=== PATIENT | female | born 1975 | race Caucasian/White ===

== ENCOUNTER → 2017-12-31 08:01 | Outpatient (CLI) | payer OTHER, SELFPAY ==
[2017-12-31 09:14] LABS: Cholesterol 180 mg/dL (140-199); HDL Cholesterol 80 mg/dL (40-60); LDL Cholesterol Calculated 72 mg/dL (<100); Triglycerides 141 mg/dL (35-150)
== END ==
PROVIDERS: PCP Internal Medicine; Visit Provider Internal Medicine
DX: Z00.00 Encounter for general adult medical examination without abnormal findings (principal); Z76.89 Persons encountering health services in other specified circumstances; I10 Essential (primary) hypertension
CPT/HCPCS: 36415; 80061

== ENCOUNTER → 2018-09-28 13:34 | Outpatient (CLI) | payer OTHER, SELFPAY ==
--- NOTE | 2018-09-28 | DI.RAD.S_ITS ---
PROCEDURE: XR HAND LT 2V INDICATIONS: ARTHRITIS TECHNIQUE: 2 views of the hand acquired. COMPARISON: None. FINDINGS: Bones: No fractures or dislocations. Carpal bones are normally aligned. No suspicious bony lesions. Soft tissues: No suspicious soft tissue calcifications. IMPRESSION: Normal for age, source of current hand pain symptoms is not seen. Dictated by: Taras Guillen M.D. on 09/28/2018 at 15:28 Approved by: Taras Guillen M.D. on 09/28/2018 at 15:29
--- NOTE | 2018-09-28 | DI.RAD.S_ITS ---
PROCEDURE: XR HAND RT 2V INDICATIONS: ARTHRITIS TECHNIQUE: 2 views of the hand(s) acquired. COMPARISON: None. FINDINGS: Bones: No fractures or dislocations. Carpal bones are normally aligned. No suspicious bony lesions. Soft tissues: No suspicious soft tissue calcifications. IMPRESSION: Normal for age, source of current hand pain symptoms is not seen. Dictated by: Taras Guillen M.D. on 09/28/2018 at 15:24 Approved by: Taras Guillen M.D. on 09/28/2018 at 15:28
== END ==
PROVIDERS: Family Provider Internal Medicine; PCP Internal Medicine; Visit Provider Physician Assistant Medical
DX: M19.041 Primary osteoarthritis, right hand (principal); M19.042 Primary osteoarthritis, left hand
CPT/HCPCS: 73120

== ENCOUNTER → 2018-12-30 11:44 | Outpatient (CLI) | payer OTHER, SELFPAY ==
[2018-12-30 14:05] LABS: Thyroid Stimulating Hormone 1.91 uIU/mL (0.47-4.68)
== END ==
PROVIDERS: PCP Internal Medicine; Visit Provider Internal Medicine
DX: J01.90 Acute sinusitis, unspecified (principal)
CPT/HCPCS: 36415; 84443

== ENCOUNTER 2019-09-10 11:39 | Emergency (ER) | payer OTHER, MEDICAID, SELFPAY ==
[2019-09-10 11:40] VITALS: BP 153/91; PULSE 88; RESP 15; TEMP 36.7; O2SAT 100
--- NOTE | 2019-09-10 11:47 | ED_ITS ---
HPI - Chest Pain General Chief Complaint: Chest Pain Stated Complaint: Thinks Possible Heart Attack Time Seen by Provider: 09/10/19 11:41 Source: patient Mode of arrival: Ambulatory Limitations: no limitations History of Present Illness HPI narrative: Patient is a 44-year-old female who presents with a variety of co mplaints. She says she is not sure what happened she woke up this morning and then started sweating profusely and then got extremely cold. She then developed some slight nausea and sensitivity to light but denies any headache. She has no numbness tingling or weakness. She did have some shortness of breath but denies any cough she says that also has resolved. Pain that lasted roughly 2 minutes and is now currently chest pain-free. She has been under quite a lot of family stress lately she says nothing she can handle. Related Data Previous Rx's Medication Instructions Recorded atenolol 25 mg PO BID #180 tab 05/04/16 lisinopril [Prinivil] 20 mg PO QDAY #90 tab 05/04/16 Allergies Allergy/AdvReac Type Severity Reaction Status Date / Time penicillin G [PENICILLIN G] Allergy Severe HIVES Verified 09/10/19 11:48 amlodipine [AMLODIPINE] AdvReac Mild edema of Verified 09/10/19 11:48 feet and ankles Review of Systems Review of Systems ROS Unobtainable: All systems reviewed & are unremarkable except as noted in HPI and below Constitutional Constitutional: Reports body ache(s), Denies malaise, Denies night sweats and Denies poor appetite Eyes Eyes: Denies change in vision, Denies eye discharge, Denies irritation and Denies loss of vision ENT Ears, Nose, Mouth, and Throat: Denies change in voice, Denies neck pain and Denies sore throat Cardiovascular Cardiovascular: Reports chest pain (Now resolved), Denies irregular heart rhythm, Denies lightheadedness, Denies palpitations, Reports dyspnea (Now resolved), Denies dyspnea on exertion and Denies orthopnea Respiratory Respiratory: Denies cough, Reports dyspnea (Now resolved), Denies dyspnea on exertion and Denies wheezing Genitourinary Genitourinary: Denies hematuria, Denies flank pain, Denies urinary incontinence and Denies urinary urgency Musculoskeletal Musculoskeletal: Denies neck pain Integumentary/Breasts Skin/Breast: Denies pruritus, Denies erythema, Denies rash and Denies wounds Neurologic Neurologic: Denies loss of vision Endocrine Endocrine: Denies palpitations Allergic/Immunologic Allergic/Immunologic: Denies wheezing Patient History Medical History Anxiety (02/25/15) Essential hypertension (Chronic 04/06/13) Vitamin D deficiency (09/09/15) Family History Father Age: 76 Smoker Mother Lymphoma, unspecified lymphoma, unspecified lymphoma region Social History Smoking Status: Never smoker Smoking Status: Never smoker Exam Initial Vital Signs Initial Vital Signs: Vital Signs Temperature 98.1 F 09/10/19 11:40 Pulse Rate 88 09/10/19 11:40 Respiratory Rate 15 09/10/19 11:40 Blood Pressure 153/91 H 09/10/19 11:40 Pulse Oximetry 100 09/10/19 11:40 GENERAL: Well-appearing, well-nourished and in no acute distress. HEENT: Head atraumatic,EOMI, pupils reactive, face symmetric, moist mucous membranes CARDIOVASCULAR: Regular rate and rhythm without murmurs, rubs or gallops. RESPIRATORY: Breath sounds equal bilaterally, no wheezes rales or rhonchi. ABDOMEN: Soft, nontender. Normoactive bowel sounds all 4 quadrants. No guarding or rebound. EXTREMITIES: Normal range of motion, no clubbing or edema. Neurovascularly intact NEUROLOGICAL: Alert and oriented x4.Normal gait and speech. SKIN: Warm, dry, no laceration, no petechiae, no rashes or lesions. Scores HEART Score Heart Score history: Slightly Suspicious Heart Score EKG: Normal Heart Score Age: 45-64 years old Heart Score risk factors: No known risk factors Heart Score troponin: < or = to normal limit Heart Score Total: 1 NIH Stroke Scale Level of Conciousness: Alert, keenly responsive Ask month/age: Answers both questions correctly. Open/close eyes, close hand: Performs both tasks correctly Best gaze horizontal: Normal Visual day: No visual loss Facial palsy: Normal symetrical movement Left arm drift: No drift for full 10 sec Right arm drift: No drift for full 10 sec Left leg drift: No drift for full 10 sec Right leg drift: No drift for full 10 sec Limb ataxia: Absent Sensory on face/arms/legs: Normal, no sensory loss Best language: No aphasia, normal Dysarthria: Normal Extinction or inattention: No abnormality Total NIH Stroke scale score: 0 Course Orders Ordered: ED Orders 09/10/19 11:43 Complete Blood Count AUTO DIFF Stat Comprehensive Metabolic Panel Stat Influenza A & B (PCR) Stat Lipase Stat Troponin & CK Cardiac Panel Stat 09/10/19 11:54 XR chest 1V Stat EKG-12 Lead Stat Discontinued Medications Sodium Chloride (Normal Saline 0.9%) 1,000 mls @ 1,000 mls/hr IV CONT MALLORY Last Infusion: 09/10/19 13:16 Dose: 0 mls/hr Documented by: Admin: 09/10/19 12:04 Dose: 1,000 mls/hr Documented by: MORGAN Ondansetron HCl (Zofran) 4 mg IV NOW ONE Stop: 09/10/19 11:55 Last Admin: 09/10/19 12:04 Dose: 4 mg Documented by: MORGAN Vital Signs Vital signs: Vital Signs - 8 hr 09/10/19 11:40 09/10/19 12:30 09/10/19 13:00 Temperature 98.1 F Pulse Rate 88 76 72 Respiratory Rate 15 14 16 Blood Pressure 153/91 H Blood Pressure [Left Arm] 128/79 140/99 H Pulse Oximetry 100 100 100 09/10/19 13:34 Temperature Pulse Rate 66 Respiratory Rate 17 Blood Pressure Blood Pressure [Left Arm] 144/80 H Pulse Oximetry 96 MDM - Chest Pain Lab Data Attestation: I reviewed the patient's lab results. Result diagrams: 09/10/19 11:43 09/10/19 11:43 Labs: Lab Results 09/10/19 09/10/19 09/10/19 Range/Units 11:43 11:43 11:43 WBC 7.5 (4.5-11.0) X10^3/uL RBC 3.64 L (4.0-5.2) X10^6/uL Hgb 12.3 (12.0-16.0) g/dL Hct 35.8 L (36-46) % MCV 98.5 (80-100) fL MCH 33.7 (26-34) PG MCHC 34.2 (30-36) % RDW 15.3 H (11.6-14.8) % Plt Count 262 (150-400) X10^3/uL Neut % (Auto) 80.1 H (50-75) % Lymph % (Auto) 11.9 L (25-40) % Nicollet % (Auto) 6.8 (3-14) % Eos % (Auto) 0.6 L (2-4) % Baso % (Auto) 0.6 (0-2) % Neut # (Auto) 6000 (7485-9340) /uL Lymph # (Auto) 900 L (6321-2401) /uL Nicollet # (Auto) 500 (0-900) /uL Eos # (Auto) 0 (0-450) /uL Baso # (Auto) 0 (0-100) /uL Sodium 137 (137-145) mmol/L Potassium 4.0 (3.4-5.1) mmol/L Chloride 99 (98-107) mmol/L Carbon Dioxide 27 (22-32) mmol/L BUN 17 (7-17) mg/dL Creatinine 1.10 H (0.52-1.04) mg/dL Estimated GFR 53.5 L (>60) mL/min BUN/Creatinine Ratio 15.5 (6-22) Glucose 151 H (70-100) mg/dL Calcium 9.6 (8.4-10.2) mg/dL Total Bilirubin 0.6 (0.2-1.3) mg/dL AST 110 H (14-36) IU/L ALT 43 H (<35) IU/L Alkaline Phosphatase 80 (38-126) U/L Total Creatine Kinase 158 H (30-135) U/L CK-MB (CK-2) 0.72 (<2.37) ng/mL CK-MB (CK-2) Rel Index 0.5 L (1.5-5.0) % Troponin I < 0.012 (0.01-0.034) ng/mL Total Protein 8.2 (6.3-8.2) g/dL Albumin 4.8 (3.5-5.0) g/dL Globulin 3.4 (1.7-4.1) g/dL Albumin/Globulin Ratio 1.4 (1.0-2.8) Lipase 186 (23-300) U/L Influenza A (RT-PCR) Flu a negative (NEGATIVE) Influenza B (RT-PCR) Flu b negative (NEGATIVE) Imaging Data Chest x-ray: Radiologist's Impression: PROCEDURE: XR CHEST 1V INDICATIONS: sob TECHNIQUE: One view of the chest was acquired. COMPARISON: None. FINDINGS: Surgical changes and devices: None. Lungs and pleura: Lungs are clear. No pleural effusions or pneumothorax. Mediastinum: Mediastinal contours appear normal. Heart size is normal. Bones and chest wall: No suspicious bony lesions. Overlying soft tissues appear unremarkable. IMPRESSION: Negative chest. No acute cardiopulmonary process is evident. Dictated by: Lucien Pacheco M.D. on 09/10/2019 at 11:30 ECG Data Attestation: I personally reviewed and interpreted this ECG as follows: Prior ECG tracings: not available for review Interpretation: Normal sinus rhythm rate 72 p.r. interval 158 QRS [address] elevation depression or T-wave inversion MDM Narrative Medical decision making narrative: Patient presents with multiple vague complaints. She has no real significant chest pain or shortness of breath with exertion she woke up with some sweating slight headache which she did not want any medications for. His after IV fluids and Zofran she is overall feeling better. Her blood pressure is noted to be slightly elevated while in the emergency department however I do not think this is contributing to her symptoms. She does have a lot of stress I think a lot of this may be related to anxiety however she does not think so. Nonetheless I recommend outpatient follow-up. Discharge Plan Departure Patient Disposition: Home Clinical Impression: Atypical chest pain, Essential hypertension Discharge Date/Time: 09/10/19 13:45 Instructions: DI for Atypical Chest Pain, DI for Anxiety -- Adult Activity Restrictions/Additional Instructions: *You have been diagnosed with atypical chest pain *What to do: At this time blood work chest x-ray EKG are overall all reassuring. Unclear what caused her symptoms today possibly anxiety. Your blood pressure is noted to be slightly elevated recommend that you follow-up with your primary care physician you may require adjustment in her medication. However blood pressure is on the likely to have caused your symptoms today *Continue to take medications as directed *Follow up with your primary care provider in 2-3 days *Return to ER if you should have any new, worsening or concerning symptoms Prescriptions: No Action lisinopril [Prinivil] 20 MG tablet 20 mg PO QDAY Qty: 90 RF: 1 atenolol 25 MG tablet 25 mg PO BID Qty: 180 RF: 1 Referrals: Indigo Samson MD [Physician] -
--- NOTE | 2019-09-10 11:54 | DI.RAD.S_ITS ---
PROCEDURE: XR CHEST 1V INDICATIONS: sob TECHNIQUE: One view of the chest was acquired. COMPARISON: None. FINDINGS: Surgical changes and devices: None. Lungs and pleura: Lungs are clear. No pleural effusions or pneumothorax. Mediastinum: Mediastinal contours appear normal. Heart size is normal. Bones and chest wall: No suspicious bony lesions. Overlying soft tissues appear unremarkable. IMPRESSION: Negative chest. No acute cardiopulmonary process is evident. Dictated by: Lucien Pacheco M.D. on 09/10/2019 at 11:30 Approved by: Lucien Pacheco M.D. on 09/10/2019 at 11:36
--- NOTE | 2019-09-10 11:58 | PC.NURSE ---
states, has been under alot of stress due to family matters. woke up all sweaty,shortness of breath with chest pain, then chills. 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
[2019-09-10] MEDS: ONDANSETRON 4 MG/2 ML INJ IV (12:04)
[2019-09-10] MEDS: SODIUM CHLORIDE 0.9% 1,000 ML 1000 ML IV (12:04)
[2019-09-10 12:11] LABS: Add Manual Diff / Slide Review NO; Basophils Absolute Auto 0 /uL (0-100); Basophils Percent Auto 0.6 % (0-2); Eosinophils Absolute Auto 0 /uL (0-450); Eosinophils Percent Auto 0.6 % (2-4); Hematocrit 35.8 % (36-46); Hemoglobin 12.3 g/dL (12.0-16.0); Lymphocytes Absolute Auto 900 /uL (1100-4500); Lymphocytes Percent Auto 11.9 % (25-40); Mean Corpuscular HGB Conc 34.2 % (30-36); Mean Corpuscular Hemoglobin 33.7 PG (26-34); Mean Corpuscular Volume 98.5 fL (80-100); Monocytes Absolute Auto 500 /uL (0-900); Monocytes Percent Auto 6.8 % (3-14); Neutrophils Absolute Auto 6000 /uL (1500-7000); Neutrophils Percent Auto 80.1 % (50-75); Platelet Count 262 X10^3/uL (150-400); Red Blood Cell Count 3.64 X10^6/uL (4.0-5.2); Red Cell Distribution Width 15.3 % (11.6-14.8); White Blood Cell Count 7.5 X10^3/uL (4.5-11.0)
[2019-09-10 12:20] LABS: Alanine Aminotransferase 43 IU/L (<35); Albumin 4.8 g/dL (3.5-5.0); Albumin Globulin Ratio 1.4 (1.0-2.8); Alkaline Phosphatase 80 U/L (38-126); Aspartate Aminotransferase 110 IU/L (14-36); BUN Creatinine Ratio 15.5 (6-22); Bilirubin Total 0.6 mg/dL (0.2-1.3); Blood Urea Nitrogen 17 mg/dL (7-17); Calcium 9.6 mg/dL (8.4-10.2); Carbon Dioxide 27 mmol/L (22-32); Chloride 99 mmol/L (98-107); Creatine Kinase 158 U/L (30-135); Estimated Glomerular Filt Rate 53.5 mL/min (>60); Globulin 3.4 g/dL (1.7-4.1); Glucose 151 mg/dL (70-100); HEMOLYSIS < 15 (0-50); Lipase 186 U/L (23-300); Sodium 137 mmol/L (137-145); Total Protein 8.2 g/dL (6.3-8.2)
[2019-09-10 12:30] VITALS: BP 128/79; PULSE 76; RESP 14; O2SAT 100
[2019-09-10 12:31] LABS: Troponin I < 0.012 ng/mL (0.01-0.034)
[2019-09-10 12:35] LABS: CKMB % Relative Index 0.5 % (1.5-5.0); Creatine Kinase MB 0.72 ng/mL (<2.37)
[2019-09-10 12:42] LABS: Influenza A - CEPHEID Flu A NEGATIVE (NEGATIVE); Influenza B - CEPHEID Flu B NEGATIVE (NEGATIVE)
[2019-09-10 13:00] VITALS: BP 140/99; PULSE 72; RESP 16; O2SAT 100
[2019-09-10 13:34] VITALS: BP 144/80; PULSE 66; RESP 17; O2SAT 96
== END 2019-09-10 13:45 | disposition home or self-care (01) ==
PROVIDERS: Emergency Provider Emergency Medicine; PCP Student in an Organized Health Care Education/Training Program
DX: R07.89 Other chest pain (principal); I10 Essential (primary) hypertension; R06.02 Shortness of breath
CPT/HCPCS: 36415; 71045; 80053; 82550; 82553; 83690; 84484; 85025; 87502; 93005; 93010; 96361; 96374; 99284; 99285; J2405

== ENCOUNTER → 2020-06-30 13:06 | Outpatient (CLI) | payer OTHER, MEDICAID, SELFPAY | PROVIDERS: PCP Student in an Organized Health Care Education/Training Program; Visit Provider Physician Assistant | DX: R30.0 Dysuria (principal) | CPT/HCPCS: 87086 ==

== ENCOUNTER 2024-03-22 16:28 | Outpatient (RCR) | payer OTHER, SELFPAY ==
--- NOTE | 2024-03-22 17:29 | PT.OIE ---
Current Diagnoses Other chronic pain (03/22/24) Pain in right shoulder (03/22/24) Pain in left shoulder (03/22/24) Past Medical History (Last Reviewed 09/10/19 @ 12:55 by Tea Avendaño DO) Anxiety (02/25/15) Essential hypertension (04/06/13) Vitamin D deficiency (09/09/15) Visit Care Team Role Provider Type Bart Asher DO Primary Care Provider Non-Staff Specialty: Medical Address: [address] [place], [address] Email: Gilbert Samayoa PA-C Attending Provider Non-Staff Family Provider Referring Provider Specialty: Medical Address: [address] [place], [address] Email: Physical Therapy Initial Evaluation PT-OP-A Visit Information Start: 03/22/24 17:39 Freq: Status: Active Protocol: Document 03/22/24 16:45 DCW (Rec: 03/22/24 17:49 [facility] [id number]) Out-Patient Physical Therapy Visit Information Visit Information Visit Type Initial Evaluation Visit Start Time 16:45 Visit Stop Time 17:15 Visit Number 1 Number of PRECISION ASSEMBLY INSPECTOR Visits 0 Evaluation Information Evaluation Date 03/22/24 PT-OP-B Current Condition Start: 03/22/24 17:39 Freq: Status: Active Protocol: Document 03/22/24 16:45 DCW (Rec: 03/22/24 17:49 [facility] [id number]) Current Condition History of Current Condition Onset Date A couple years Current Complaints Bilateral shoulder pain History of Current Condition Pt is a 48 year old female presenting with a couple year history of bilateral shoulder pain. Pt reports the pain varies, comes and goes, and switches side to side. 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 Does not feel like there is anything she has discovered that makes it either worse or better. When her shoulders hurt more on worse days, she notes she chooses not to do things that might hurt, like play tennis, but she could if she really wanted to. Prior Treatments and Tests Bilateral shoulder X-ray: IMPRESSION: [id number] acromioclavicular osteoarthritis, greater on the right than on the left. per Bernard Lucio M.D. on 2023 PT-OP-C Subjective Start: 03/22/24 17:39 Freq: Status: Active Protocol: Document 03/22/24 16:45 DCW (Rec: 03/22/24 17:49 DCW [id number]) OP-PT Subjective Patient Comments Patient Comments There's no pain in my right this week. And today is a pretty mild pain day for my left. I'm sorry I'm not in more pain. Patient Questionnaires Quick Dash- Upper Extremity Quick Dash UE Score 22.73% Quick Dash UE Impairment 20 to 39% Impaired (Score 20- 39) PT-OP-F Manual Assessment Start: 03/22/24 17:39 Freq: Status: Active Protocol: Document 03/22/24 16:45 DCW (Rec: 03/23/24 16:15 DCW [id number]) Manual Assessments Joint Mobility Assessment Joint Mobility Assessment Bilateral shoulder blades protracted, inferior angle slightly rotated medially PT-OP-J Posture/Palpation/Skin Start: 03/22/24 17:39 Freq: Status: Active Protocol: Document 03/22/24 16:45 DCW (Rec: 03/23/24 16:15 DCW [id number]) Posture Evaluation Position Sitting Shoulder Posture (L) Rounded,(R) Rounded Scapula Posture (L) Protracted,(R) Protracted, (L) Rotated Down,(R) Rotated Down PT-OP-K Range of Motion Start: 03/22/24 17:39 Freq: Status: Active Protocol: Document 03/22/24 16:45 DCW (Rec: 03/23/24 16:15 DCW [id number]) Shoulder Goniometric Range of Motion Shoulder ROM Limitations Comments Shoulder ROM WNL bilaterally PT-OP-L Special Tests Start: 03/22/24 17:39 Freq: Status: Active Protocol: Document 03/22/24 16:45 DCW (Rec: 03/23/24 16:15 DCW [id number]) Special Tests Shoulder Special Tests Painful Arc Test Results Positive L Passive ER Rotator Cuff Test Results Negative Lift-Off Rotator Cuff Test Results Positive L Barraza Luis F Impingement Test Results Positive L Grind Labrum Test Results Negative Clunk Test Test Results Negative Belly Press Test Results Positive L Apprehension Test Test Results Negative PT-OP-Q Treatments Start: 03/22/24 17:39 Freq: Status: Active Protocol: Document 03/22/24 16:45 DCW (Rec: 03/22/24 17:51 DCW [id number]) Therapeutic Exercises Supine Exercises Serratus Punch Supine Exercise Name Serratus Punch Side bilateral Standing Exercises Shoulder Extension Standing Exercise Name Shoulder Extension Side bilateral Resistance Lv 3 Rows Standing Exercise Name Rows Side bilateral Resistance Lv 3 Pec Stretch Standing Exercise Name Pec Stretch in corner Side bilateral PT-OP-T Assessment and Plan Start: 03/22/24 17:39 Freq: Status: Active Protocol: Document 03/22/24 16:45 DCW (Rec: 03/23/24 16:21 DCW [id number]) Physical Therapy Assessment Rehab Potential Rehabilitation Potential Good Evaluation Complexity Number of Personal Factors/Comorbidities 1-2 Number of Body Systems Impaired 1-2 Clinical Presentation at Evaluation Stable Impairments Impairments Pain,Posture Assessment Summary Assessment Pt presented with mildly positive symptomology suggestive of potential supraspinatus impingement. Bilateral scapula mildly protracted and downwardly rotated, may be creating decreased subacromial space, resulting in impingement and increased inflammation. Overall, pain less at this point than it had been earlier . Pt provided with HEP, including pec stretch, serratus punch, rows, and shoulder extension. Following assessment, pt phoned clinic, requesting cancellation of remaining appointments and discharge. Pt will be discharged from skilled therapy at this time. Physical Therapy Plan Frequency and Duration Frequency of Treatment 1x/Week Plan of Care Start Date 03/22/24 Plan of Care End Date 03/23/24 Discharge Physical Therapy Discharge Reasons Patient Request
--- NOTE | 2024-03-22 17:30 | PT.OPPOC ---
Physical, Occupational & Speech Therapy At [facility] Current Diagnoses Other chronic pain (03/22/24) Pain in right shoulder (03/22/24) Pain in left shoulder (03/22/24) Visit Care Team Role Provider Type Bart Asher DO Primary Care Provider Non-Staff Specialty: Medical Address: [address] [place], [address] Email: Gilbert Samayoa PA-C Attending Provider Non-Staff Family Provider Referring Provider Specialty: Medical Address: [address] [facility], [place], [address] Email: Plan Of Care PT-OP-B Current Condition Start: 03/22/24 17:39 Freq: Status: Active Protocol: Document 03/22/24 16:45 DCW (Rec: 03/22/24 17:49 DCW [id number]) Current Condition History of Current Condition Onset Date A couple years Current Complaints Bilateral shoulder pain History of Current Condition Pt is a 48 year old female presenting with a couple year history of bilateral shoulder pain. Pt reports the pain varies, comes and goes, and switches side to side. 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 Does not feel like there is anything she has discovered that makes it either worse or better. When her shoulders hurt more on worse days, she notes she chooses not to do things that might hurt, like play tennis, but she could if she really wanted to. Prior Treatments and Tests Bilateral shoulder X-ray: IMPRESSION: [id number] acromioclavicular osteoarthritis, greater on the right than on the left. per Bernard Lucio M.D. on 2023 PT-OP-T Assessment and Plan Start: 03/22/24 17:39 Freq: Status: Active Protocol: Document 03/22/24 16:45 DCW (Rec: 03/23/24 16:21 DCW [id number]) Physical Therapy Assessment Rehab Potential Rehabilitation Potential Good Evaluation Complexity Number of Personal Factors/Comorbidities 1-2 Number of Body Systems Impaired 1-2 Clinical Presentation at Evaluation Stable Impairments Impairments Pain,Posture Assessment Summary Assessment Pt presented with mildly positive symptomology suggestive of potential supraspinatus impingement. Bilateral scapula mildly protracted and downwardly rotated, may be creating decreased subacromial space, resulting in impingement and increased inflammation. Overall, pain less at this point than it had been earlier . Pt provided with HEP, including pec stretch, serratus punch, rows, and shoulder extension. Following assessment, pt phoned clinic, requesting cancellation of remaining appointments and discharge. Pt will be discharged from skilled therapy at this time. Physical Therapy Plan Frequency and Duration Frequency of Treatment 1x/Week Plan of Care Start Date 03/22/24 Plan of Care End Date 03/23/24 Discharge Physical Therapy Discharge Reasons Patient Request Plan of Care Dates Plan of Care Start Date 03/22/24 Plan of Care End Date 03/23/24 Electronically Signed by: Porfirio Geronimo, PT 03/23/24 0391 If you are in agreement with this Plan of Care, please return a signed and dated copy. I have reviewed this Plan of Care and certify that the skilled therapy services above are required to meet the patient?s needs. Physician Signature Date Printed Name and Credentials Clinical Instructor Signature Printed Name and Credentials
--- NOTE | 2024-03-23 16:21 | PT.OIE ---
Current Diagnoses Other chronic pain (03/22/24) Pain in right shoulder (03/22/24) Pain in left shoulder (03/22/24) Past Medical History (Last Reviewed 09/10/19 @ 12:55 by Tea Avendaño DO) Anxiety (02/25/15) Essential hypertension (04/06/13) Vitamin D deficiency (09/09/15) Visit Care Team Role Provider Type Bart Asher DO Primary Care Provider Non-Staff Specialty: Medical Address: [address] [place], [address] Email: Gilbert Samayoa PA-C Attending Provider Non-Staff Family Provider Referring Provider Specialty: Medical Address: [address] [place], [address] Email: Physical Therapy Initial Evaluation PT-OP-A Visit Information Start: 03/22/24 17:39 Freq: Status: Active Protocol: Document 03/22/24 16:45 DCW (Rec: 03/22/24 17:49 [facility] [id number]) Out-Patient Physical Therapy Visit Information Visit Information Visit Type Initial Evaluation Visit Start Time 16:45 Visit Stop Time 17:15 Visit Number 1 Number of [employer] Visits 0 Evaluation Information Evaluation Date 03/22/24 PT-OP-B Current Condition Start: 03/22/24 17:39 Freq: Status: Active Protocol: Document 03/22/24 16:45 DCW (Rec: 03/22/24 17:49 [facility] [id number]) Current Condition History of Current Condition Onset Date A couple years Current Complaints Bilateral shoulder pain History of Current Condition Pt is a 48 year old female presenting with a couple year history of bilateral shoulder pain. Pt reports the pain varies, comes and goes, and switches side to side. 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 Does not feel like there is anything she has discovered that makes it either worse or better. When her shoulders hurt more on worse days, she notes she chooses not to do things that might hurt, like play tennis, but she could if she really wanted to. Prior Treatments and Tests Bilateral shoulder X-ray: IMPRESSION: [id number] acromioclavicular osteoarthritis, greater on the right than on the left. per Bernard Lucio M.D. on 2023 PT-OP-C Subjective Start: 03/22/24 17:39 Freq: Status: Active Protocol: Document 03/22/24 16:45 DCW (Rec: 03/22/24 17:49 DCW [id number]) OP-PT Subjective Patient Comments Patient Comments There's no pain in my right this week. And today is a pretty mild pain day for my left. I'm sorry I'm not in more pain. Patient Questionnaires Quick Dash- Upper Extremity Quick Dash UE Score 22.73% Quick Dash UE Impairment 20 to 39% Impaired (Score 20- 39) PT-OP-F Manual Assessment Start: 03/22/24 17:39 Freq: Status: Active Protocol: Document 03/22/24 16:45 DCW (Rec: 03/23/24 16:15 DCW [id number]) Manual Assessments Joint Mobility Assessment Joint Mobility Assessment Bilateral shoulder blades protracted, inferior angle slightly rotated medially PT-OP-J Posture/Palpation/Skin Start: 03/22/24 17:39 Freq: Status: Active Protocol: Document 03/22/24 16:45 DCW (Rec: 03/23/24 16:15 DCW [id number]) Posture Evaluation Position Sitting Shoulder Posture (L) Rounded,(R) Rounded Scapula Posture (L) Protracted,(R) Protracted, (L) Rotated Down,(R) Rotated Down PT-OP-K Range of Motion Start: 03/22/24 17:39 Freq: Status: Active Protocol: Document 03/22/24 16:45 DCW (Rec: 03/23/24 16:15 DCW [id number]) Shoulder Goniometric Range of Motion Shoulder ROM Limitations Comments Shoulder ROM WNL bilaterally PT-OP-L Special Tests Start: 03/22/24 17:39 Freq: Status: Active Protocol: Document 03/22/24 16:45 DCW (Rec: 03/23/24 16:15 DCW [id number]) Special Tests Shoulder Special Tests Painful Arc Test Results Positive L Passive ER Rotator Cuff Test Results Negative Lift-Off Rotator Cuff Test Results Positive L Barraza Luis F Impingement Test Results Positive L Grind Labrum Test Results Negative Clunk Test Test Results Negative Belly Press Test Results Positive L Apprehension Test Test Results Negative PT-OP-Q Treatments Start: 03/22/24 17:39 Freq: Status: Active Protocol: Document 03/22/24 16:45 DCW (Rec: 03/22/24 17:51 DCW [id number]) Therapeutic Exercises Supine Exercises Serratus Punch Supine Exercise Name Serratus Punch Side bilateral Standing Exercises Shoulder Extension Standing Exercise Name Shoulder Extension Side bilateral Resistance Lv 3 Rows Standing Exercise Name Rows Side bilateral Resistance Lv 3 Pec Stretch Standing Exercise Name Pec Stretch in corner Side bilateral PT-OP-T Assessment and Plan Start: 03/22/24 17:39 Freq: Status: Active Protocol: Document 03/22/24 16:45 DCW (Rec: 03/23/24 16:21 DCW [id number]) Physical Therapy Assessment Rehab Potential Rehabilitation Potential Good Evaluation Complexity Number of Personal Factors/Comorbidities 1-2 Number of Body Systems Impaired 1-2 Clinical Presentation at Evaluation Stable Impairments Impairments Pain,Posture Assessment Summary Assessment Pt presented with mildly positive symptomology suggestive of potential supraspinatus impingement. Bilateral scapula mildly protracted and downwardly rotated, may be creating decreased subacromial space, resulting in impingement and increased inflammation. Overall, pain less at this point than it had been earlier . Pt provided with HEP, including pec stretch, serratus punch, rows, and shoulder extension. Following assessment, pt phoned clinic, requesting cancellation of remaining appointments and discharge. Pt will be discharged from skilled therapy at this time. Physical Therapy Plan Frequency and Duration Frequency of Treatment 1x/Week Plan of Care Start Date 03/22/24 Plan of Care End Date 03/23/24 Discharge Physical Therapy Discharge Reasons Patient Request
== END 2024-04-25 14:41 | disposition home or self-care (01) ==
LOC: PHYS 16:28
PROVIDERS: Family Provider Physician Assistant; PCP Student in an Organized Health Care Education/Training Program; Referring Provider Physician Assistant; Visit Provider Physician Assistant
DX: M25.511 Pain in right shoulder (principal); G89.29 Other chronic pain; M25.512 Pain in left shoulder
CPT/HCPCS: 97110; 97161

== ENCOUNTER → 2024-06-22 09:22 | Outpatient (CLI) | payer BC, SELFPAY ==
[2024-06-22 10:10] LABS: Influenza A - CEPHEID Flu A NEGATIVE (NEGATIVE); Influenza B - CEPHEID Flu B NEGATIVE (NEGATIVE); Respiratory Syncytial Virus Negative (Negative)
[2024-06-22 11:07] LABS: COVID-19 CEPHEID 4-PLEX PCR Negative (Negative)
== END ==
PROVIDERS: Family Provider Physician Assistant; PCP Student in an Organized Health Care Education/Training Program; Visit Provider Physician Assistant
DX: R05.1 Acute cough (principal); J02.9 Acute pharyngitis, unspecified; R50.9 Fever, unspecified; R42 Dizziness and giddiness; J06.9 Acute upper respiratory infection, unspecified
CPT/HCPCS: 0241U; 87070